=== PATIENT | female | born 1950 | race Caucasian/White ===

== ENCOUNTER 2024-02-01 16:33 | Emergency (ER) | payer OTHER, SELFPAY ==
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
[2024-02-01 16:30] VITALS: BP 137/68; PULSE 80; RESP 16; TEMP 37.1; O2SAT 100
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
[2024-02-01] MEDS: TETANUS,DIPHTHERIA,AC PERTUSSIS ADULT (0.5 ML) BOOSTRIX IM (17:43)
[2024-02-01] MEDS: ACETAMINOPHEN 500 MG TABLET 1000 MG PO (17:45)
[2024-02-01] MEDS: traMADol HCL (*CRX) 50 MG TABLET PO (17:46)
[2024-02-01 18:20] VITALS: BP 135/72; PULSE 70; RESP 16; O2SAT 98
== END 2024-02-01 18:20 | disposition home or self-care (01) ==
PROVIDERS: Emergency Provider Physician Assistant
DX: S51.011A Laceration without foreign body of right elbow, initial encounter (principal); Z23 Encounter for immunization; M47.812 Spondylosis without myelopathy or radiculopathy, cervical region; M19.021 Primary osteoarthritis, right elbow; M19.011 Primary osteoarthritis, right shoulder; V43.63XA Car passenger injured in collision with pick-up truck in traffic accident, initial encounter
CPT/HCPCS: 70450; 72125; 72128; 73060; 73080; 90471; 90715; 99284; A9270

== ENCOUNTER 2024-03-12 13:52 | Outpatient (CLI) | payer OTHER, SELFPAY ==
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
== END 2024-03-12 13:53 ==
PROVIDERS: PCP Internal Medicine Infectious Disease; Visit Provider Nurse Practitioner Family
DX: M25.551 Pain in right hip (principal); M53.3 Sacrococcygeal disorders, not elsewhere classified
CPT/HCPCS: 72202